=== PATIENT | female | born 1990 | race Caucasian/White ===

== ENCOUNTER 2016-08-23 16:24 | Outpatient (CLI) | payer MEDICAID ==
[2016-08-23 17:13] LABS: AMORPHOUS SEDIMENT,URINE TRACE /HPF; APPEARANCE,URINE SLIGHTLY-CLOUDY; BILIRUBIN,URINE NEGATIVE (NEGATIVE); GLUCOSE, URINE NEGATIVE (NEGATIVE); KETONES,URINE NEGATIVE (NEGATIVE); LEUKOCYTE ESTERASE,URINE NEGATIVE (NEGATIVE); NITRITE,URINE NEGATIVE (NEGATIVE); PROTEIN,URINE NEGATIVE (NEGATIVE); UROBILINOGEN,URINE NEGATIVE mg/dL (<2.0)
[2016-08-23 17:18] LABS: AMNISURE (ROM) NEGATIVE (NEGATIVE)
[2016-08-23 17:33] LABS: URINE BARBITURATES SCREEN NEGATIVE; URINE METHADONE SCREEN NEGATIVE; URINE OPIATES LOW NEGATIVE; URINE PHENCYCLIDINE SCREEN NEGATIVE
--- NOTE | 2016-08-23 17:34 | Non Stress Test Report ---
Non Stress Test Datetime Report Generated by CPN: 08/23/2016 17:34 DEMOGRAPHIC EGA NST: 34.0 INDICATION Indication for Study: Ordered by Provider Indication for Study (NST) Other: Labor Check MONITORING Monitor Explained: Monitor Explained; Test Explained; Patient Verbalized Understanding Time on Monitor: 08/23/2016 16:41 Time off Monitor: 08/23/2016 17:28 NST Duration: 47 NST INTERVENTIONS NST Interventions: PO Hydration; Reposition Patient Physician Notified NST: Dr. Blackwell BABY A: [id number] BABY A Movement : Present Contraction Frequency : 0 FHR Baseline : 145 Accelerations : 15X15 Variability : Moderate 6-25bpm NST Review: Meets Criteria for Reactive NST NST Review and Verified By : Richard Diehl RN NST Results: Reactive NST REPORT Report Trigger: Send Report
== END 2016-08-23 17:36 | disposition home or self-care (01) ==
LOC: LC 16:24
PROVIDERS: ATTEND Obstetrics & Gynecology
PROC: 4A1HXCZ Monitoring of Products of Conception, Cardiac Rate, External Approach (ICD-10-PCS; principal; 2016-08-23)
DX: O26.893 Other specified pregnancy related conditions, third trimester (principal); R10.9 Unspecified abdominal pain; Z3A.34 34 weeks gestation of pregnancy
CPT/HCPCS: 59025; 80307; 81001; 84112

== ENCOUNTER 2016-09-28 09:56 | Outpatient (CLI) | payer MEDICAID ==
[2016-09-28 10:52] LABS: APPEARANCE,URINE SLIGHTLY-CLOUDY; BILIRUBIN,URINE NEGATIVE (NEGATIVE); GLUCOSE, URINE NEGATIVE (NEGATIVE); KETONES,URINE NEGATIVE (NEGATIVE); LEUKOCYTE ESTERASE,URINE MODERATE (NEGATIVE); NITRITE,URINE NEGATIVE (NEGATIVE); PROTEIN,URINE NEGATIVE (NEGATIVE); URINE SPECIFIC GRAVITY 1.004; UROBILINOGEN,URINE NEGATIVE mg/dL (<2.0)
--- NOTE | 2016-09-28 11:04 | Non Stress Test Report ---
Non Stress Test Datetime Report Generated by CPN: 09/28/2016 11:04 DEMOGRAPHIC EGA NST: 39.1 INDICATION Indication for Study: Ordered by Provider MONITORING Monitor Explained: Monitor Explained; Test Explained; Patient Verbalized Understanding Time on Monitor: 09/28/2016 10:09 Time off Monitor: 09/28/2016 10:54 NST Duration: 45 NST INTERVENTIONS NST Interventions: None Physician Notified NST: Dr. [place] BABY A: [id number] BABY A Movement : Present Contraction Frequency : occasional FHR Baseline : 140 Accelerations : 15X15 Decelerations : None Variability : Moderate 6-25bpm NST Review: Meets Criteria for Reactive NST NST Results: Reactive NST REPORT Report Trigger: Send Report
[2016-09-28 11:16] LABS: URINE BARBITURATES SCREEN NEGATIVE; URINE METHADONE SCREEN NEGATIVE; URINE OPIATES LOW NEGATIVE; URINE PHENCYCLIDINE SCREEN NEGATIVE
== END 2016-09-28 11:08 | disposition home or self-care (01) ==
LOC: LC 09:56
PROVIDERS: ATTEND Obstetrics & Gynecology
PROC: 4A1HXCZ Monitoring of Products of Conception, Cardiac Rate, External Approach (ICD-10-PCS; principal; 2016-09-28)
DX: O47.1 False labor at or after 37 completed weeks of gestation (principal); Z3A.39 39 weeks gestation of pregnancy
CPT/HCPCS: 59025; 80307; 81005

== ENCOUNTER 2016-09-29 15:19 | Outpatient (CLI) | payer MEDICAID ==
--- NOTE | 2016-09-29 16:16 | Non Stress Test Report ---
Non Stress Test Datetime Report Generated by CPN: 09/29/2016 16:16 DEMOGRAPHIC EGA NST: 39.2 INDICATION Indication for Study: Ordered by Provider MONITORING Monitor Explained: Monitor Explained; Test Explained; Patient Verbalized Understanding Time on Monitor: 09/29/2016 15:30 Time off Monitor: 09/29/2016 16:12 NST Duration: 42 NST INTERVENTIONS NST Interventions: PO Hydration Physician Notified NST: Dr. Bharath BABY A: [id number] BABY A Movement : Present Contraction Frequency : occasional FHR Baseline : 140 Accelerations : 15X15 Decelerations : None Variability : Moderate 6-25bpm NST Review: Meets Criteria for Reactive NST NST Review and Verified By : CYNTHIA Wakefield Results: Reactive NST REPORT Report Trigger: Send Report
== END 2016-09-29 16:16 | disposition home or self-care (01) ==
LOC: LC 15:19
PROVIDERS: ATTEND Obstetrics & Gynecology
PROC: 4A1HXCZ Monitoring of Products of Conception, Cardiac Rate, External Approach (ICD-10-PCS; principal; 2016-09-29)
DX: Z34.93 Encounter for supervision of normal pregnancy, unspecified, third trimester (principal)
CPT/HCPCS: 59025

== ENCOUNTER 2016-10-02 16:31 | Outpatient (CLI) | payer MEDICAID ==
--- NOTE | 2016-10-02 17:38 | Non Stress Test Report ---
Non Stress Test Datetime Report Generated by CPN: 10/02/2016 17:38 DEMOGRAPHIC Test Number: 1 EGA NST: 39.5 INDICATION Indication for Study: Ordered by Provider Indication for Study (NST) Other: Pre e work up MONITORING Monitor Explained: Monitor Explained; Test Explained; Patient Verbalized Understanding Time on Monitor: 10/02/2016 16:41 Time off Monitor: 10/02/2016 17:28 NST Duration: 47 NST INTERVENTIONS NST Interventions: PO Hydration Physician Notified NST: Bharath BABY A: [id number] BABY A Movement : Present Contraction Frequency : occasional FHR Baseline : 135 Accelerations : 15X15 Decelerations : None Variability : Moderate 6-25bpm NST Review: Meets Criteria for Reactive NST NST Review and Verified By : V Monk RN NST Results: Reactive NST REPORT Report Trigger: Send Report (Annotations: Data stored by Marlo on behalf of user)
[2016-10-02 17:50] LABS: HEMATOCRIT 30.8 % (36.0-47.0); HEMOGLOBIN 10.6 g/dL (12.0-15.5); MEAN CORPUSCULAR HEMOGLOBIN 30.2 pg (27.0-33.4); MEAN CORPUSCULAR HGB CONC 34.3 g/dL (32.0-36.0); MEAN CORPUSCULAR VOLUME 88 fl (80-97); RED CELL DISTRIBUTION WIDTH 13.5 % (11.5-14.0); WHITE BLOOD COUNT 17.7 10^3/uL (4.0-10.5)
[2016-10-02 18:05] LABS: BASOPHILS % (MANUAL) 0 % (0-2); EOSINOPHILS % (MANUAL) 1 % (0-6); LYMPHOCYTES % (MANUAL) 11 % (13-45); TOTAL CELLS COUNTED 100
[2016-10-02 18:05] LABS: APPEARANCE,URINE SLIGHTLY-CLOUDY; BILIRUBIN,URINE NEGATIVE (NEGATIVE); GLUCOSE, URINE NEGATIVE (NEGATIVE); KETONES,URINE NEGATIVE (NEGATIVE); LEUKOCYTE ESTERASE,URINE MODERATE (NEGATIVE); NITRITE,URINE NEGATIVE (NEGATIVE); PROTEIN,URINE NEGATIVE (NEGATIVE); URINE SPECIFIC GRAVITY 1.011; UROBILINOGEN,URINE NEGATIVE mg/dL (<2.0)
[2016-10-02 18:06] LABS: ALANINE AMINOTRANSFERASE 17 U/L (9-52); ALBUMIN 3.8 g/dL (3.5-5.0); ALKALINE PHOSPHATASE 172 U/L (38-126); ANION GAP 11 (5-19); ASPARTATE AMINO TRANSFERASE 17 U/L (14-36); BILIRUBIN,DIRECT 0.3 mg/dL (0.0-0.4); BILIRUBIN,TOTAL 0.4 mg/dL (0.2-1.3); BLOOD UREA NITROGEN 13 mg/dL (7-20); CALCIUM 9.9 mg/dL (8.4-10.2); CARBON DIOXIDE 17 mmol/L (22-30); CHLORIDE 107 mmol/L (98-107); CREATININE RESULT 0.73 mg/dL (0.52-1.25); GLUCOSE 81 mg/dL (75-110); LDH 452 U/L (313-618); POTASSIUM 4.6 mmol/L (3.6-5.0); SODIUM 135.4 mmol/L (137-145); TOTAL PROTEIN 7.1 g/dL (6.3-8.2); TOXIC GRANULATION SLIGHT; URIC ACID 5.6 mg/dL (2.5-6.2)
[2016-10-02 18:33] LABS: URINE BARBITURATES SCREEN NEGATIVE; URINE METHADONE SCREEN NEGATIVE; URINE OPIATES LOW NEGATIVE; URINE PHENCYCLIDINE SCREEN NEGATIVE
[2016-10-02 18:37] LABS: URINE CREATININE 74.3 mg/dL (16-327); URINE PROTEIN 14.9 mg/dL (<12)
== END 2016-10-02 18:27 | disposition home or self-care (01) ==
LOC: LC 16:31
PROVIDERS: ATTEND Obstetrics & Gynecology
PROC: 4A1HXCZ Monitoring of Products of Conception, Cardiac Rate, External Approach (ICD-10-PCS; principal; 2016-10-02)
DX: O14.93 Unspecified pre-eclampsia, third trimester (principal); Z3A.39 39 weeks gestation of pregnancy
CPT/HCPCS: 36415; 59025; 80053; 80307; 81001; 82570; 83615; 84156; 84550; 85025

== ENCOUNTER 2016-10-04 01:31 | Outpatient (CLI) | payer MEDICAID ==
[2016-10-04 02:23] LABS: APPEARANCE,URINE CLEAR; BILIRUBIN,URINE NEGATIVE (NEGATIVE); GLUCOSE, URINE NEGATIVE (NEGATIVE); KETONES,URINE NEGATIVE (NEGATIVE); LEUKOCYTE ESTERASE,URINE TRACE (NEGATIVE); NITRITE,URINE NEGATIVE (NEGATIVE); PROTEIN,URINE NEGATIVE (NEGATIVE); URINE SPECIFIC GRAVITY 1.003; UROBILINOGEN,URINE NEGATIVE mg/dL (<2.0)
[2016-10-04 02:38] LABS: URINE BARBITURATES SCREEN NEGATIVE; URINE METHADONE SCREEN NEGATIVE; URINE OPIATES LOW NEGATIVE; URINE PHENCYCLIDINE SCREEN NEGATIVE
--- NOTE | 2016-10-04 03:58 | RADIOLOGY REPORT (SQ) ---
EXAM DESCRIPTION: U/S OB LIMITED COMPLETED DATE/TIME: 10/04/2016 3:30 am REASON FOR STUDY: TOSHIA . The patient is 40 weeks 0 days . COMPARISON: None. TECHNIQUE: Limited transabdominal grayscale and color Doppler ultrasound for evaluation of specific requested obstetrical parameters. LIMITATIONS: None. FINDINGS: CERVICAL LENGTH: Not applicable. Greater than 20 weeks. Need transvaginal study if indicat ed. TOSHIA: 13.8 cm. Clear appearance. FHR: 140 beats per minute. PRESENTATION: Vertex. IMPRESSION: LIMITED OBSTETRICAL ULTRASOUND WITH MEASURED PARAMETERS DELINEATED ABOVE. Trimester of : Third trimester - 28 weeks to delivery. TECHNICAL DOCUMENTATION: JOB ID: [id number] [employer]- All Rights Reserved
== END 2016-10-04 03:59 | disposition home or self-care (01) ==
LOC: LC 01:31
PROVIDERS: ATTEND Specialist
PROC: 4A1HXCZ Monitoring of Products of Conception, Cardiac Rate, External Approach (ICD-10-PCS; principal; 2016-10-04)
DX: O36.8130 Decreased fetal movements, third trimester, not applicable or unspecified (principal); Z3A.40 40 weeks gestation of pregnancy
CPT/HCPCS: 59025; 76815; 80307; 81005

== ENCOUNTER 2016-10-12 11:58 | Emergency (ER) | payer MEDICAID ==
--- NOTE | 2016-10-12 14:15 | ER Document Report ---
ED General - General Chief Complaint: Leg Pain Stated Complaint: LEG PAIN AND SWELLING LEFT LEG TRAVEL OUTSIDE OF THE [place] IN LAST 30 DAYS: No - HPI Patient complains to provider of: Left leg edema Notes: Patient is coming in 5 days postop from having a section. Patient states has been having issues of bilateral leg swelling elevated leg last night states that her right leg was normal this morning however the left leg continued to have swelling. Patient denies any pain left leg. Upon my evaluation patient is resting comfortably in no obvious distress no history of blood clots in the past. 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 - Related Data Allergies/Adverse Reactions: No Known Allergies Allergy (Verified 10/12/16 12:06) Past Medical History - Social History Smoking Status: Current Every Day Smoker Chew tobacco use (# tins/day): No Frequency of alcohol use: None Drug Abuse: None Family History: Reviewed & Not Pertinent Patient has suicidal ideation: No Patient has homicidal ideation: No Neurological Medical History: Reports: Hx Migraine Renal/ Medical History: Denies: Hx Peritoneal Dialysis Past Surgical History: Reports: Hx Section - Immunizations Hx Diphtheria, Pertussis, Tetanus Vaccination: Yes Review of Systems - Review of Systems Constitutional: No symptoms reported EENT: No symptoms reported Cardiovascular: No symptoms reported Respiratory: No symptoms reported Gastrointestinal: No symptoms reported Genitourinary: No symptoms reported Female Genitourinary: No symptoms reported Musculoskeletal: Other - Left leg swelling Skin: No symptoms reported Hematologic/Lymphatic: No symptoms reported Neurological/Psychological: No symptoms reported Physical Exam - Vital signs Vitals: Temp Pulse Resp BP Pulse Ox 98.2 F 78 14 142/90 H 99 10/12/16 12:06 10/12/16 12:06 10/12/16 12:06 10/12/16 12:06 10/12/16 12:06 Interpretation: Normal - General General appearance: Appears well, Alert - HEENT Head: Normocephalic, Atraumatic Eyes: Normal Pupils: PERRL - Respiratory Respiratory status: No respiratory distress Chest status: Nontender Breath sounds: Normal Chest palpation: Normal - Cardiovascular Rhythm: Regular Heart sounds: Normal auscultation Murmur: No - Abdominal Inspection: Normal Distension: No distension Bowel sounds: Normal Tenderness: Nontender Organomegaly: No organomegaly - Back Back: Normal, Nontender - Extremities General upper extremity: Normal inspection, Nontender, Normal color, Normal ROM , Normal temperature General lower extremity: Normal inspection, Edema - 1+ bilateral no calf tenderness, Normal color, Normal ROM, Normal temperature, Normal weight bearing. No: Felipe's sign - Neurological Neuro grossly intact: Yes Cognition: Normal Orientation: AAOx4 Emiliano Coma Scale Eye Opening: Spontaneous [place] Coma Scale Verbal: Oriented Emiliano Coma Scale Motor: Obeys Commands Emiliano Coma Scale Total: 15 Speech: Normal Motor strength normal: LUE, RUE, LLE, RLE Sensory: Normal - Psychological Associated symptoms: Normal affect, Normal mood - Skin Skin Temperature: Warm Skin Moisture: Dry Skin Color: Normal Course - Re-evaluation Re-evalutation: 10/12/16 14:14 Dopplers are negative. Otherwise clinical examination are consistent with blood clot. Patient will be discharged home. - Vital Signs Vital signs: Temp Pulse Resp BP Pulse Ox 98.2 F 78 14 142/90 H 99 10/12/16 12:06 10/12/16 12:06 10/12/16 12:06 10/12/16 12:06 10/12/16 12:06 Discharge - Discharge Clinical Impression: Left leg swelling Condition: Good Disposition: HOME, SELF-CARE Instructions: Dependent Edema ([facility]) Additional Instructions: Follow-up with your MARKETING PROJECT COORDINATOR. Continue your activities as tolerated. Continue to elevate her legs at night.
[2016-10-12 14:32] VITALS: BP 139/84
--- NOTE | 2016-10-12 14:41 | RADIOLOGY REPORT (SQ) ---
EXAM DESCRIPTION: VENOUS UNILATERAL LOWER COMPLETED DATE/TIME: 10/12/2016 2:23 pm REASON FOR STUDY: pain left leg / s/p c section COMPARISON: None. TECHNIQUE: Dynamic and static sandoval scale and color images acquired of the left leg venous system. Se lected spectral images acquired with additional compression and augmentation maneuvers. The contralat eral common femoral vein and saphenofemoral junction were also imaged. Images stored on PACS. LIMITATIONS: None. FINDINGS: COMMON FEMORAL: Normal phasicity, compression and augmentation. No visualized echogenic ma terial on sandoval scale. No defects on color images. FEMORAL: Normal compression and augmentation. No visualized echogenic material on sandoval scale. No defe cts on color images. POPLITEAL: Normal compression, augmentation. No visualized echogenic material on sandoval scale. No defec ts on color images. CALF VESSELS: Normal compression, augmentation. No visualized echogenic material on sandoval scale. No de fects on color images. GSV and SSV: Normal compression, augmentation. No visualized echogenic material on sandoval scale. No def ects on color images. ANY DEEP VENOUS INSUFFICIENCY: Not evaluated. ANY EVIDENCE OF POPLITEAL CYST: No. OTHER: No other significant finding. CONTRALATERAL COMMON FEMORAL VEIN AND SAPHENOFEMORAL JUNCTION: Normal phasicity, compression and augmentation. No visualized echogenic material on sandoval scale. No de fects on color images. IMPRESSION: NO EVIDENCE DVT OR SVT IN THE LEFT LEG. TECHNICAL DOCUMENTATION: JOB ID: [id number] [employer]- All Rights Reserved
== END 2016-10-12 14:32 | disposition home or self-care (01) ==
LOC: ER 11:58
DX: O90.89 Other complications of the puerperium, not elsewhere classified (principal); M79.89 Other specified soft tissue disorders; O99.335 Smoking (tobacco) complicating the puerperium; Z98.890 Other specified postprocedural states
CPT/HCPCS: 93971; 99283

== ENCOUNTER 2016-11-11 04:43 | Emergency (ER) | payer MEDICAID ==
--- NOTE | 2016-11-11 05:24 | ER Document Report ---
ED GI/ - General Chief Complaint: Abdominal Pain Stated Complaint: ABDOMINAL /BACK PAIN Time Seen by Provider: 11/11/16 05:24 Mode of Arrival: Ambulatory Information source: Patient Notes: 26-year-old post 1 month female complaining of epigastric and right upper quadrant abdominal pain for a week and a half. She went to [facility] for this pain and the lab work was normal. They did not do an ultrasound or CT scan. She has a lot of nausea without vomiting. No fever or chills. No dysuria. Lochia is dark brown at this time. She was monitored for possible preeclampsia during the late stages of . They did not place her on any medication. Blood pressure was 169/107 when at the [facility]. due to failure to progress. TRAVEL OUTSIDE OF THE [place] IN LAST 30 DAYS: No - Related Data Allergies/Adverse Reactions: No Known Allergies Allergy (Verified 11/11/16 05:01) Past Medical History - General Information source: Patient - Social History Smoking Status: Unknown if Ever Smoked Frequency of alcohol use: None Drug Abuse: None Lives with: Family Family History: Reviewed & Not Pertinent Patient has suicidal ideation: No Patient has homicidal ideation: No Neurological Medical History: Reports: Hx Migraine Renal/ Medical History: Denies: Hx Peritoneal Dialysis Past Surgical History: Reports: Hx Section - Immunizations Hx Diphtheria, Pertussis, Tetanus Vaccination: Yes Review of Systems - Review of Systems Constitutional: No symptoms reported EENT: No symptoms reported Cardiovascular: No symptoms reported Respiratory: No symptoms reported Gastrointestinal: See HPI Genitourinary: No symptoms reported Female Genitourinary: No symptoms reported Musculoskeletal: No symptoms reported Skin: No symptoms reported Hematologic/Lymphatic: No symptoms reported Neurological/Psychological: No symptoms reported Physical Exam - Vital signs Vitals: Temp Pulse Resp BP Pulse Ox 97.9 F 75 22 H 147/113 H 99 11/11/16 04:57 11/11/16 04:57 11/11/16 04:57 11/11/16 04:57 11/11/16 04:57 Interpretation: Hypertensive - General General appearance: Appears well, Alert In distress: None - HEENT Head: Normocephalic, Atraumatic Eyes: Normal Pupils: PERRL Pharynx: Normal Neck: Supple. No: Lymphadenopathy - Respiratory Respiratory status: No respiratory distress Chest status: Nontender Breath sounds: Normal Chest palpation: Normal - Cardiovascular Rhythm: Regular Heart sounds: Normal auscultation Murmur: No - Abdominal Inspection: Normal Distension: No distension Bowel sounds: Normal Tenderness: Tender - epigastric, RUQ Organomegaly: No organomegaly - Back Back: Normal, Nontender. No: CVA tenderness - Extremities General upper extremity: Normal inspection, Nontender, Normal color, Normal ROM , Normal temperature General lower extremity: Normal inspection, Nontender, Normal color, Normal ROM , Normal temperature, Normal weight bearing. No: Felipe's sign - Neurological Neuro grossly intact: Yes Cognition: Normal Orientation: AAOx4 Emiliano Coma Scale Eye Opening: Spontaneous [place] Coma Scale Verbal: Oriented Emiliano Coma Scale Motor: Obeys Commands Emiliano Coma Scale Total: 15 Speech: Normal Motor strength normal: LUE, RUE, LLE, RLE Sensory: Normal - Psychological Associated symptoms: Normal affect, Normal mood - Skin Skin Temperature: Warm Skin Moisture: Dry Skin Color: Normal Skin irregularity: negative: Rash Course - Re-evaluation Re-evalutation: 11/11/16 06:08 pain 0/5 after pain rx. discussed case with dr. engel re: BP 11/11/16 06:09 11/11/16 06:55 Labs are negative no protein in the urine. LFTs are normal. 11/11/16 07:[address] Matthews because the ultrasound shows a right kidney hydronephrosis with a cystic structure in the right mid kidney with a 8 mm stone. He recommends placing the patient on a PPI, telling her about this kidney stone that that is trying to come out of the kidney and have her follow-up with [facility]. I will give her copies of the lab work and ultrasound results. Her gallbladder is negative. - Vital Signs Vital signs: Temp Pulse Resp BP Pulse Ox 97.9 F 75 13 123/101 H 99 11/11/16 04:57 11/11/16 04:57 11/11/16 07:01 11/11/16 07:01 11/11/16 07:01 - Laboratory Result Diagrams: 11/11/16 05:40 11/11/16 05:40 Laboratory results interpreted by me: 11/11/16 11/11/16 05:40 05:40 Hct 35.7 L RDW 14.2 H Eosinophils % 7.9 H Chloride 110 H Discharge - Discharge Clinical Impression: Elevated blood pressure reading, upper abdominal pain, Kidney stone Condition: Good Disposition: HOME, SELF-CARE Instructions: Evaluation of Upper Abdominal Pain ([facility]), Kidney Stone ([facility]), Prilosec (Acid Pump Inhibitor) ([facility]), Gastroenterology Additional Instructions: to er if worse copy of labs given to you see gastroenterology if the abd pain persists see urology to follow the kidney stone Please complete the patient satisfaction survey if you get one, and return it.. If you do not receive a survey, then you can go to the [facility] website, [email or web address] and place your comments about your very good care. Thank you very much. It was a pleasure being your medical provider today. Prescriptions: Pantoprazole Sodium [Protonix] 40 mg PO DAILY #30 [email or web address] Referrals: CHANDAN HENDERSON MD [ACTIVE STAFF] - Follow up as needed
[2016-11-11] MEDS ORDERED: NORMAL SALINE 1000 ML 1,000 ML IV ONE (05:26)
[2016-11-11] MEDS ORDERED: ONDANSETRON HCL INJ/PF 4 MG/2 ML SDV IV ONE (05:26)
[2016-11-11] MEDS ORDERED: MORPHINE SULFATE 10 MG/ML INJ IV ONE (05:26)
[2016-11-11 06:10] LABS: ABSOLUTE BASOPHILS # (AUTO) 0.1 10^3/uL (0.0-0.2); ABSOLUTE EOSINOPHILS # (AUTO) 0.5 10^3/uL (0.0-0.6); ABSOLUTE LYMPHOCYTES (AUTO) 1.8 10^3/uL (0.5-4.7); ABSOLUTE MONOCYTES (AUTO) 0.4 10^3/uL (0.1-1.4); ABSOLUTE NEUT (AUTO) 3.8 10^3/uL (1.7-8.2); BASOPHILS % (AUTO) 1.4 % (0-2); EOSINOPHILS % (AUTO) 7.9 % (0-6); HEMATOCRIT 35.7 % (36.0-47.0); HEMOGLOBIN 12.1 g/dL (12.0-15.5); HGB HCT DIFFERENCE 0.6; LYMPHOCYTES % (AUTO) 27.1 % (13-45); MEAN CORPUSCULAR VOLUME 88 fl (80-97); MONOCYTES % (AUTO) 6.6 % (3-13); RED BLOOD COUNT 4.04 10^6/uL (3.72-5.28); RED CELL DISTRIBUTION WIDTH 14.2 % (11.5-14.0); WHITE BLOOD COUNT 6.7 10^3/uL (4.0-10.5)
[2016-11-11 06:22] LABS: ALANINE AMINOTRANSFERASE 19 U/L (9-52); ALKALINE PHOSPHATASE 59 U/L (38-126); ANION GAP 9 (5-19); ASPARTATE AMINO TRANSFERASE 18 U/L (14-36); BILIRUBIN,DIRECT 0.3 mg/dL (0.0-0.4); BILIRUBIN,TOTAL 0.3 mg/dL (0.2-1.3); BLOOD UREA NITROGEN 20 mg/dL (7-20); CALCIUM 9.6 mg/dL (8.4-10.2); CARBON DIOXIDE 22 mmol/L (22-30); CHLORIDE 110 mmol/L (98-107); CREATININE RESULT 0.74 mg/dL (0.52-1.25); GLUCOSE 91 mg/dL (75-110); LIPASE 148.3 U/L (23-300); POTASSIUM 4.2 mmol/L (3.6-5.0); TOTAL PROTEIN 6.9 g/dL (6.3-8.2)
[2016-11-11 06:37] LABS: APPEARANCE,URINE CLEAR; BILIRUBIN,URINE NEGATIVE (NEGATIVE); GLUCOSE, URINE NEGATIVE (NEGATIVE); KETONES,URINE NEGATIVE (NEGATIVE); LEUKOCYTE ESTERASE,URINE NEGATIVE (NEGATIVE); NITRITE,URINE NEGATIVE (NEGATIVE); PROTEIN,URINE NEGATIVE (NEGATIVE); URINE SPECIFIC GRAVITY 1.005; UROBILINOGEN,URINE NEGATIVE mg/dL (<2.0)
--- NOTE | 2016-11-11 07:14 | RADIOLOGY REPORT (SQ) ---
EXAM DESCRIPTION: U/S ABDOMEN LIMITED W/O DOP CLINICAL HISTORY: 26 years, Female, epigastric, ruq abd pain COMPARISON: None. TECHNIQUE: Grayscale, color Doppler and spectral Doppler waveform analysis techniques were all utilized to perform this examination. LIMITATIONS: None. FINDINGS: No Hyperechoic mobile shadowing stones in the fluid-filled gallbladder. No gallbladder wall thickening or pericholecystic fluid. Gallbladder wall measures 1.4 mm in greatest thickness. Common duct measures 2.4 mm in greatest diameter. No intra or extrahepatic biliary ductal dilatation. The right hepatic lobe appears grossly normal and measures 16 cm in greatest sagittal dimension. There is normal hepatopedal blood flow in the portal vein using color Doppler and spectral Doppler waveform analysis techniques. Right kidney measures 11.4 cm in greatest sagittal dimension. 1.3 cm cystic structure in the mid right kidney probably representing dilated renal collecting system with associated shadowing stone measuring at least 8 mm in greatest diameter. Strong arterial and venous blood flow to the right kidney using color Doppler techniques. The pancreatic head and body are normal. The pancreatic tail cannot be clearly visualized. The suprarenal abdominal aorta and inferior vena cava are normal. Splenic vein is patent. IMPRESSION: 1. No ultrasonographic evidence of cholelithiasis or cholecystitis. 2. No intra or extrahepatic biliary ductal dilatation. 3. Suspect right hydronephrosis with probable nonobstructing shadowing right renal collecting system stone is described above. 2011 [employer]- All Rights Reserved
[2016-11-11] MEDS ORDERED: LANSOPRAZOLE 30 MG TAB.RAP.DR PO ONE (07:20)
[2016-11-11 07:54] VITALS: BP 138/89
== END 2016-11-11 07:54 | disposition home or self-care (01) ==
LOC: ER 04:43
DX: O90.89 Other complications of the puerperium, not elsewhere classified (principal); N13.2 Hydronephrosis with renal and ureteral calculous obstruction; R03.0 Elevated blood-pressure reading, without diagnosis of hypertension; R10.11 Right upper quadrant pain; R10.13 Epigastric pain; R11.0 Nausea; Z98.890 Other specified postprocedural states
CPT/HCPCS: 99284; 96361; 96374; 96375; 36415; 87086; 83690; 84703; 85025; 80053; 81001; 76705; J2270; J2405; J7030

== ENCOUNTER 2016-11-14 04:22 | Emergency (ER) | payer MEDICAID ==
--- NOTE | 2016-11-14 04:55 | ER Document Report ---
ED Medical Screen (RME) - General Chief Complaint: Post Surgical Pain Stated Complaint: POST OP SURGICAL PAIN Time Seen by Provider: 11/14/16 04:47 Notes: 26-year-old female, chief complaint of abdominal pain that started today, reports pain over her lower abdomen on both sides, she states the area above her incision status post on 10/07/2016 "looks red". She denies trauma to the area. She denies fever or chills, nausea or vomiting, she does report some painful urination, she reports pain in her abdomen when she urinates. She states she has minimal vaginal bleeding now. She is not breast-feeding. She had a performed by [facility]. TRAVEL OUTSIDE OF THE [place] IN LAST 30 DAYS: No - Related Data Allergies/Adverse Reactions: No Known Allergies Allergy (Verified 11/11/16 05:01) Past Medical History Neurological Medical History: Reports: Hx Migraine Renal/ Medical History: Denies: Hx Peritoneal Dialysis Past Surgical History: Reports: Hx Section - Immunizations Hx Diphtheria, Pertussis, Tetanus Vaccination: Yes Physical Exam - Vital signs Vitals: Temp Pulse Resp BP Pulse Ox 97.7 F 90 16 139/89 H 99 11/14/16 04:24 11/14/16 04:24 11/14/16 04:24 11/14/16 04:24 11/14/16 04:24 - Abdominal Inspection: Healed incision - Healed incision with no dehiscence or discharge Tenderness: Tender - Tender over lower abdomen generally on both sides, no rigidity or guarding Course - Re-evaluation Re-evalutation: Wound appears to have healed well, mild erythema does not appear to be overt cellulitis at this time. Patient does have tenderness over the lower abdomen generally. Workup pending. - Vital Signs Vital signs: Temp Pulse Resp BP Pulse Ox 97.7 F 90 16 139/89 H 99 11/14/16 04:24 11/14/16 04:24 11/14/16 04:24 11/14/16 04:24 11/14/16 04:24
[2016-11-14 05:22] LABS: ABSOLUTE BASOPHILS # (AUTO) 0.1 10^3/uL (0.0-0.2); ABSOLUTE EOSINOPHILS # (AUTO) 0.5 10^3/uL (0.0-0.6); ABSOLUTE LYMPHOCYTES (AUTO) 1.6 10^3/uL (0.5-4.7); ABSOLUTE MONOCYTES (AUTO) 0.8 10^3/uL (0.1-1.4); ABSOLUTE NEUT (AUTO) 5.3 10^3/uL (1.7-8.2); BASOPHILS % (AUTO) 0.9 % (0-2); EOSINOPHILS % (AUTO) 6.3 % (0-6); HEMATOCRIT 39.9 % (36.0-47.0); HEMOGLOBIN 13.3 g/dL (12.0-15.5); LYMPHOCYTES % (AUTO) 19.8 % (13-45); MEAN CORPUSCULAR HEMOGLOBIN 29.4 pg (27.0-33.4); MEAN CORPUSCULAR HGB CONC 33.2 g/dL (32.0-36.0); MEAN CORPUSCULAR VOLUME 88 fl (80-97); MONOCYTES % (AUTO) 9.4 % (3-13); RED BLOOD COUNT 4.51 10^6/uL (3.72-5.28); SEGMENTED NEUTROPHILS % (AUTO) 63.6 % (42-78); WHITE BLOOD COUNT 8.3 10^3/uL (4.0-10.5)
[2016-11-14 05:28] LABS: APPEARANCE,URINE SLIGHTLY-CLOUDY; BILIRUBIN,URINE NEGATIVE (NEGATIVE); GLUCOSE, URINE NEGATIVE (NEGATIVE); KETONES,URINE NEGATIVE (NEGATIVE); LEUKOCYTE ESTERASE,URINE NEGATIVE (NEGATIVE); NITRITE,URINE NEGATIVE (NEGATIVE); PROTEIN,URINE 30 mg/dL (NEGATIVE); URINE SPECIFIC GRAVITY 1.034
[2016-11-14 05:35] LABS: ALANINE AMINOTRANSFERASE 22 U/L (9-52); ALBUMIN 4.3 g/dL (3.5-5.0); ALKALINE PHOSPHATASE 62 U/L (38-126); ANION GAP 12 (5-19); ASPARTATE AMINO TRANSFERASE 17 U/L (14-36); BILIRUBIN,DIRECT 0.4 mg/dL (0.0-0.4); BILIRUBIN,TOTAL 0.4 mg/dL (0.2-1.3); BLOOD UREA NITROGEN 23 mg/dL (7-20); CARBON DIOXIDE 24 mmol/L (22-30); CHLORIDE 108 mmol/L (98-107); CREATININE RESULT 0.75 mg/dL (0.52-1.25); GLUCOSE 93 mg/dL (75-110); POTASSIUM 3.9 mmol/L (3.6-5.0); TOTAL PROTEIN 7.4 g/dL (6.3-8.2)
[2016-11-14 06:58] VITALS: BP 127/75
--- NOTE | 2016-11-14 07:02 | ER Document Report ---
ED General - General Chief Complaint: Post Surgical Pain Stated Complaint: POST OP SURGICAL PAIN Time Seen by Provider: 11/14/16 04:47 TRAVEL OUTSIDE OF THE [place] IN LAST 30 DAYS: No - HPI Patient complains to provider of: pain Notes: Patient coming in for evaluation of pain around her . Patient had C- section performed in September. Patient states now is having some redness around C -section site. Patient denies fevers chills nausea vomiting diarrhea patient states the area is very sensitive. Denies any drainage. - Related Data Allergies/Adverse Reactions: No Known Allergies Allergy (Verified 11/14/16 06:00) Home Medications: Current Home Medications Docusate Sodium [Colace 100 mg Capsule] 1 cap PO BID 11/14/16 [History] Ferrous Sulfate [Feosol 325 mg Tablet] 1 tab PO BID 11/14/16 [History] Naproxen [Naproxen] 1 tab PO BID 11/14/16 [History] Pantoprazole Sodium [Protonix] 1 pkt PO DAILY 11/14/16 [History] Past Medical History - Social History Smoking Status: Current Every Day Smoker Chew tobacco use (# tins/day): No Frequency of alcohol use: None Drug Abuse: None Family History: Reviewed & Not Pertinent Patient has suicidal ideation: No Patient has homicidal ideation: No Neurological Medical History: Reports: Hx Migraine Renal/ Medical History: Denies: Hx Peritoneal Dialysis Psychiatric Medical History: Reports: Hx Depression - anxiety Past Surgical History: Reports: Hx Section - Immunizations Hx Diphtheria, Pertussis, Tetanus Vaccination: Yes Review of Systems - Review of Systems Constitutional: Other - Wound complaint EENT: No symptoms reported Cardiovascular: No symptoms reported Respiratory: No symptoms reported Gastrointestinal: No symptoms reported Genitourinary: No symptoms reported Female Genitourinary: No symptoms reported Musculoskeletal: No symptoms reported Skin: No symptoms reported Hematologic/Lymphatic: No symptoms reported Neurological/Psychological: No symptoms reported Physical Exam - Vital signs Vitals: Temp Pulse Resp BP Pulse Ox 97.7 F 90 16 139/89 H 99 11/14/16 04:24 11/14/16 04:24 11/14/16 04:24 11/14/16 04:24 11/14/16 04:24 Interpretation: Normal - General General appearance: Appears well, Alert - HEENT Head: Normocephalic, Atraumatic Eyes: Normal Pupils: PERRL - Respiratory Respiratory status: No respiratory distress Chest status: Nontender Breath sounds: Normal Chest palpation: Normal - Cardiovascular Rhythm: Regular Heart sounds: Normal auscultation Murmur: No - Abdominal Inspection: Normal Distension: No distension Bowel sounds: Normal Tenderness: Other - Patient with a scar mild erythema approximately 1 inch cephalad to the site warm and tender to touch there is some mild swelling localized to this area bedside ultrasound does not show any fluid collection consistent with abscess. Patient does have areas of folliculitis caudad to the site with the patient has been shaving. More likely etiology of underlying cellulitis Organomegaly: No organomegaly - Back Back: Normal, Nontender - Extremities General upper extremity: Normal inspection, Nontender, Normal color, Normal ROM , Normal temperature General lower extremity: Normal inspection, Nontender, Normal color, Normal ROM , Normal temperature, Normal weight bearing. No: Felipe's sign - Neurological Neuro grossly intact: Yes Cognition: Normal Orientation: AAOx4 Emiliano Coma Scale Eye Opening: Spontaneous [place] Coma Scale Verbal: Oriented [place] Coma Scale Motor: Obeys Commands [place] Coma Scale Total: 15 Speech: Normal Motor strength normal: LUE, RUE, LLE, RLE Sensory: Normal - Psychological Associated symptoms: Normal affect, Normal mood - Skin Skin Temperature: Warm Skin Moisture: Dry Skin Color: Normal Course - Re-evaluation Re-evalutation: 11/14/16 14:31 Cellulitic formation around the site more likely from irritation of the skin by shaving. Patient was instructed to stop shaving. Will place on Keflex will discharge patient home. - Vital Signs Vital signs: Temp Pulse Resp BP Pulse Ox 98.1 F 73 16 127/75 H 99 11/14/16 06:56 11/14/16 06:56 11/14/16 06:56 11/14/16 06:56 11/14/16 06:56 - Laboratory Result Diagrams: 11/14/16 05:05 11/14/16 05:05 Laboratory results interpreted by me: 11/14/16 11/14/16 11/14/16 05:05 05:05 05:05 Eosinophils % 6.3 H Chloride 108 H BUN 23 H Urine Protein 30 H Urine Blood LARGE H Urine Urobilinogen 2.0 H Urine Ascorbic Acid 20 H Discharge - Discharge Clinical Impression: Cellulitis, wound, post-operative Qualifiers: Encounter type: initial encounter Qualified Code(s): T81.4XXA - Infection following a procedure, initial encounter Condition: Good Disposition: HOME, SELF-CARE Instructions: Cellulitis ([facility]) Additional Instructions: Examination today shows signs of possible underlying skin infection. It is very important that she stop shaving around the area. Also please avoid any undergarments that lie over the incision or near the incision. Take medications as prescribed return to ER symptoms worsen. Continue take Tylenol Motrin for pain control Prescriptions: Cephalexin Monohydrate [Keflex 500 mg Capsule] 500 mg PO Q6H 7 Days capsule Tramadol HCl [Ultram 50 mg Tablet] 50 mg PO ASDIR PRN #14 tablet PRN Reason: Referrals: HALLIE STRICKLAND MD [Primary Care Provider] - Follow up in 3-5 days
== END 2016-11-14 07:05 | disposition home or self-care (01) ==
LOC: ER 04:22
DX: T81.4XXA Infection following a procedure, initial encounter (principal); G89.18 Other acute postprocedural pain; Z79.899 Other long term (current) drug therapy; F17.200 Nicotine dependence, unspecified, uncomplicated
CPT/HCPCS: 36415; 80053; 81001; 81025; 85025; 99283

== ENCOUNTER 2018-07-14 12:44 | Emergency (ER) | payer SELFPAY ==
--- NOTE | 2018-07-14 13:09 | ER Document Report ---
ED Medical Screen (RME) - General Chief Complaint: Abdominal Pain Stated Complaint: ABDOMINAL PAIN Time Seen by Provider: 07/14/18 13:04 Primary Care Provider: HALLIE STRICKLAND MD [Primary Care Provider] - Follow up as needed Mode of Arrival: Ambulatory Information source: Patient Notes: Patient is an otherwise healthy 28-year-old female presenting with chief compl aint of low abdominal pain, increased and abdominal smelling vaginal discharge and nausea. Patient reports she has had the abdominal pain for at least 2 weeks. Exam: Low abdomen tenderness with palpation. I have greeted and performed a rapid initial assessment of this patient. A comprehensive ED assessment and evaluation of the patient, analysis of test results and completion of the medical decision making process will be conducted by additional ED providers. Dictation of this chart was performed using voice recognition software; therefore, there may be some unintended grammatical errors. TRAVEL OUTSIDE OF THE [place] IN LAST 30 DAYS: No - Related Data Allergies/Adverse Reactions: No Known Allergies Allergy (Verified 07/14/18 12:50) Past Medical History Neurological Medical History: Reports: Hx Migraine Renal/ Medical History: Denies: Hx Peritoneal Dialysis Psychiatric Medical History: Reports: Hx Depression - anxiety Past Surgical History: Reports: Hx Section - Immunizations Hx Diphtheria, Pertussis, Tetanus Vaccination: Yes History of Influenza Vaccine for 11/2016 - 04/2017 Season: No Physical Exam - Vital signs Vitals: Temp Pulse Resp BP Pulse Ox 99.5 F 96 18 131/72 H 95 07/14/18 12:45 07/14/18 12:45 07/14/18 12:45 07/14/18 12:45 07/14/18 12:45 Course - Vital Signs Vital signs: Temp Pulse Resp BP Pulse Ox 99.5 F 96 18 131/72 H 95 07/14/18 12:45 07/14/18 12:45 07/14/18 12:45 07/14/18 12:45 07/14/18 12:45 Doctor's Discharge - Discharge Referrals: HALLIE STRICKLAND MD [Primary Care Provider] - Follow up as needed
[2018-07-14 13:59] LABS: ABSOLUTE BASOPHILS # (AUTO) 0.1 10^3/uL (0.0-0.2); ABSOLUTE EOSINOPHILS # (AUTO) 0.3 10^3/uL (0.0-0.6); ABSOLUTE LYMPHOCYTES (AUTO) 1.4 10^3/uL (0.5-4.7); ABSOLUTE MONOCYTES (AUTO) 0.5 10^3/uL (0.1-1.4); ABSOLUTE NEUT (AUTO) 6.8 10^3/uL (1.7-8.2); BASOPHILS % (AUTO) 0.7 % (0-2); EOSINOPHILS % (AUTO) 3.3 % (0-6); HEMATOCRIT 41.2 % (36.0-47.0); LYMPHOCYTES % (AUTO) 15.7 % (13-45); MEAN CORPUSCULAR HEMOGLOBIN 30.8 pg (27.0-33.4); MEAN CORPUSCULAR HGB CONC 33.9 g/dL (32.0-36.0); MEAN CORPUSCULAR VOLUME 91 fl (80-97); MONOCYTES % (AUTO) 5.2 % (3-13); PLATELET COUNT 297 10^3/uL (150-450); RED BLOOD COUNT 4.53 10^6/uL (3.72-5.28); RED CELL DISTRIBUTION WIDTH 13.4 % (11.5-14.0); SEGMENTED NEUTROPHILS % (AUTO) 75.1 % (42-78); TOTAL CELLS COUNTED % (AUTO) 100 %; WHITE BLOOD COUNT 9.1 10^3/uL (4.0-10.5)
[2018-07-14 14:22] LABS: ALANINE AMINOTRANSFERASE 10 U/L (9-52); ALBUMIN 4.4 g/dL (3.5-5.0); ALKALINE PHOSPHATASE 55 U/L (38-126); ANION GAP 11 (5-19); ASPARTATE AMINO TRANSFERASE 15 U/L (14-36); BILIRUBIN,DIRECT 0.2 mg/dL (0.0-0.4); BILIRUBIN,TOTAL 0.3 mg/dL (0.2-1.3); BLOOD UREA NITROGEN 10 mg/dL (7-20); CALCIUM 9.9 mg/dL (8.4-10.2); CARBON DIOXIDE 25 mmol/L (22-30); CHLORIDE 108 mmol/L (98-107); GLUCOSE 86 mg/dL (75-110); POTASSIUM 4.4 mmol/L (3.6-5.0); SODIUM 143.5 mmol/L (137-145); TOTAL PROTEIN 7.5 g/dL (6.3-8.2)
--- NOTE | 2018-07-14 15:13 | ER Document Report ---
ED GI/ - General Chief Complaint: Abdominal Pain Stated Complaint: ABDOMINAL PAIN Time Seen by Provider: 07/14/18 13:04 Primary Care Provider: HALLIE STRICKLAND MD [ACTIVE STAFF] - Follow up as needed Mode of Arrival: Ambulatory Notes: Patient is a 28-year-old female who presents to the emergency department with multiple complaints. Patient states that 2 weeks ago she developed left flank pain that radiated into her left upper quadrant. She states that it felt like a stabbing pain. Patient also complains of bloating. Patient states that she is having lower abdominal discomfort. Patient reports history of ovarian cysts, kidney stones, gallstones so she is unsure if any of these other cause to her discomfort. States the only place in her abdomen that she does not hurt is around her bellybutton. Patient also states that she has been diagnosed with gastric ulcers that she is supposed to take medications for. Patient does not take medications and only takes Tums as needed. Patient denies vaginal discharge. Patient denies vaginal odor. Patient states she had a last bowel movement today and states her last couple of bowel movements have been loose stools. Denies rectal bleeding. She denies fever. TRAVEL OUTSIDE OF THE [place] IN LAST 30 DAYS: No - Related Data Allergies/Adverse Reactions: No Known Allergies Allergy (Verified 07/14/18 12:50) Past Medical History - General Information source: Patient - Social History Smoking Status: Unknown if Ever Smoked Family History: Reviewed & Not Pertinent Patient has suicidal ideation: No Patient has homicidal ideation: No Neurological Medical History: Reports: Hx Migraine Renal/ Medical History: Denies: Hx Peritoneal Dialysis Psychiatric Medical History: Reports: Hx Depression - anxiety Past Surgical History: Reports: Hx Section - Immunizations Hx Diphtheria, Pertussis, Tetanus Vaccination: Yes Physical Exam - Vital signs Vitals: Temp Pulse Resp BP Pulse Ox 99.5 F 96 18 131/72 H 95 07/14/18 12:45 07/14/18 12:45 07/14/18 12:45 07/14/18 12:45 07/14/18 12:45 Interpretation: Normal - Notes Notes: GENERAL: Well-appearing, well-nourished and in no acute distress. HEAD: Atraumatic, normocephalic. EYES: Pupils equal round and reactive to light, extraocular movements intact, sclera anicteric, conjunctiva are normal. ENT: Nares patent, oropharynx clear without exudates. Moist mucous membranes. NECK: Normal range of motion, supple without lymphadenopathy or JVD. LUNGS: Breath sounds clear to auscultation bilaterally and equal. No wheezes rales or rhonchi. HEART: Regular rate and rhythm without murmurs, rubs or gallops. ABDOMEN: Soft, generally tender throughout abdomen, hyperactive bowel sounds. No guarding, no rebound. No masses appreciated. BACK: No cervical, thoracic, lumbar midline tenderness. No saddle anesthesia, normal distal neurovascular exam. Minimal CVA tenderness bilaterally. GENITOURINARY: Deferred. EXTREMITIES: Normal range of motion, no pitting or edema. No clubbing or cyanosis. NEUROLOGICAL: Cranial nerves II through XII grossly intact. Normal speech, normal gait. PSYCH: Normal mood, normal affect. SKIN: Warm, Dry, normal turgor, no rashes or lesions noted. Course - Re-evaluation Re-evalutation: 07/14/18 17:07 Lab work unremarkable. Due to generalized abdominal complaint both ultrasound and CAT scan have been ordered. Patient is in agreement of the plan. I have discussed the risks with CAT scan and radiation, patient states she would like to proceed due to increased pain. Patient admits to taking 6-7 BC powders per day. Patient states she was diagnosed with "gastric ulcers" years ago and is suppose to be on medication but is not. 07/14/18 18:10 Patient CAT scan did show a 7mm non-obstructing kidney stone on the right. There is no evidence of hydronephrosis. Ultrasound pending. 07/14/18 19:52 Discussed normal pelvic ultrasound findings with patient as well as 7mm kidney stone on the right. Patient states that she knew about the existing right kidney stone and that her pain is not located in this area. Reassured patient that her blood work, urine, pelvic specimens and vitals are normal. Did educate patient to stop taking BC powders as this could contribute to some of her abdominal pain especially in the upper abdomen. Also educated patient to avoid NSAID's such as Ibuprofen, Aleve as this can irritate and worsen the gastric ulcers. Will prescribe pepcid for pain. Patient will need follow up with GI. - Vital Signs Vital signs: Temp Pulse Resp BP Pulse Ox 98.1 F 66 16 117/78 99 07/14/18 19:38 07/14/18 19:38 07/14/18 19:38 07/14/18 19:38 07/14/18 19:38 - Laboratory Result Diagrams: 07/14/18 13:34 07/14/18 13:34 Laboratory results interpreted by me: 07/14/18 13:34 Chloride 108 H - Diagnostic Test Radiology reviewed: Reports reviewed Procedures - Pelvic Exam Pelvic exam Cultures obtained: Yes Wet prep obtained: Yes Foreign body removed: No Witnessed by: NURSE Notes: 07/14/18 External genitalia normal, no lesions, excoriation, discharge or abnormality. Minimal pain with insertion of speculum, cervix visualized, no bleeding, scant white discharge. After procedure patient reports having increased pain to the lower abdomen specifically RLQ. Discharge - Discharge Clinical Impression: Kidney stone on right side, Pelvic pain Abdominal pain Qualifiers: Abdominal location: generalized Qualified Code(s): R10.84 - Generalized abdominal pain Condition: Stable Disposition: HOME, SELF-CARE Additional Instructions: Today you were seen in the emergency department for back pain and abdominal pain. Your pelvic exam, pelvic ultrasound, urine and blood work were unremarkable. Your CAT scan did show a 7 mm kidney stone on the right side. You stated that you were aware of this. I am unsure as to why you are having this pain. Please stop taking BC powders due to your history of gastric ulcers. Also, AVOID NSAID's such as Aleve, Ibuprofen as this can be irritating to the stomach and cause pain. I am prescribing you Pepcid, please take one tablet daily. Please follow up with your supervisor [address] road for management of this. Please return the emergency department for worsening signs or symptoms to include vomiting blood, severe abdominal pain, fever, chills or any other concerning signs or symptoms. Abdominal Pain The physician does not feel that hospitalization is necessary, at present. Things may change within the next 24 hours. Call the doctor or come back for re- examination if any problems occur, such as: (1) Pain that becomes more severe, steady, or becomes concentrated in one specific area. Also, pain that is more severe with movement or coughing. (2) Vomiting that persists or becomes more frequent. (3) Blood in the vomitus, urine, or bowel movements. Blood in the stool may have a tarry or black appearance. (4) Shaking chills or fever greater than 100 degrees F. (5) The abdomen becomes more distended or swollen. (6) Bowel movements cease. (7) Failure to improve as expected. Prescriptions: Famotidine [Pepcid 20 mg Tablet] 20 mg PO DAILY #30 tablet Referrals: [facility] [Provider Group] - Follow up as needed CHANDAN HENDERSON MD [ACTIVE STAFF] - Follow up as needed
[2018-07-14 15:22] LABS: APPEARANCE,URINE CLOUDY; BILIRUBIN,URINE NEGATIVE (NEGATIVE); COLOR,URINE YELLOW; GLUCOSE, URINE NEGATIVE (NEGATIVE); KETONES,URINE NEGATIVE (NEGATIVE); LEUKOCYTE ESTERASE,URINE NEGATIVE (NEGATIVE); NITRITE,URINE NEGATIVE (NEGATIVE); PROTEIN,URINE NEGATIVE (NEGATIVE); URINE SPECIFIC GRAVITY 1.019; UROBILINOGEN,URINE NEGATIVE mg/dL (<2.0)
[2018-07-14] MEDS ORDERED: ONDANSETRON HCL INJ/PF 4 MG/2 ML SDV IV ONE (16:00)
[2018-07-14] MEDS ORDERED: MORPHINE SULFATE 10 MG/ML INJ IV ONE (16:02)
[2018-07-14] MEDS ORDERED: NORMAL SALINE 1000 ML 1,000 ML IV ONE (16:02)
[2018-07-14 16:08] LABS: T.VAGINALIS (WET MOUNT) NO TRICHOMONAS SEEN; WBCS (WET MOUNT) NO WBCS SEEN; YEAST (WET MOUNT) NO YEAST SEEN
--- NOTE | 2018-07-14 17:30 | RADIOLOGY REPORT (SQ) ---
EXAM DESCRIPTION: CT ABD/PELVIS WITH IV ONLY COMPLETED DATE/TIME: 07/14/2018 5:21 pm REASON FOR STUDY: abdominal pain COMPARISON: None. TECHNIQUE: CT scan of the abdomen and pelvis performed using helical scanning technique with dynamic intravenous contrast injection. No oral contrast. Images reviewed with lung, soft tissue, and bone windows. Reconstructed coronal and sagittal MPR images reviewed. Delayed images for evaluation of the urinary system also acquired. All images stored on PACS. All CT scanners at this facility use dose modulation, iterative reconstruction, and/or weight based d osing when appropriate to reduce radiation dose to as low as reasonably achievable (ALARA). [facility]: Dose Right [facility]: CareDose [facility]: Dose Right [facility]: Teradose 4D [facility]: [email or web address] CONTRAST TYPE AND DOSE: contrast/concentration: Isovue 350.00 mg/ml; Total Contrast Delivered: 72.0 ml; Total Saline Delivered: 66.0 ml RENAL FUNCTION: None required. The patient is less than 50 years old. RADIATION DOSE: CT Rad equipment meets quality standard of care and radiation dose reduction techniq ues were employed. CTDIvol: 5.6 - 7.7 mGy. DLP: 650 mGy-cm.. LIMITATIONS: None. FINDINGS: LOWER CHEST: No significant findings. No nodules or infiltrates. LIVER: Normal size. No masses. No dilated ducts. SPLEEN: Normal size. No focal lesions. PANCREAS: No masses. No significant calcifications. No adjacent inflammation or peripancreatic fluid collections. Pancreatic duct not dilated. GALLBLADDER: No identified stones by CT criteria. No inflammatory changes to suggest cholecystitis. ADRENAL GLANDS: No significant masses or asymmetry. RIGHT KIDNEY AND URETER: 2 cm cyst. 7 mm renal calculus. No hydronephrosis or hydroureter. LEFT KIDNEY AND URETER: No solid masses. No significant calcifications. No hydronephrosis or hydr oureter. AORTA AND VESSELS: No aneurysm. No dissection. Renal arteries, SMA, celiac without stenosis. RETROPERITONEUM: No retroperitoneal adenopathy, hemorrhage or masses. BOWEL AND PERITONEAL CAVITY: No masses or inflammatory changes. No free fluid or peritoneal masses. APPENDIX: Normal. PELVIS: No mass. No free fluid. Normal bladder. ABDOMINAL WALL: No masses. No hernias. BONES: No significant or acute findings. OTHER: No other significant finding. IMPRESSION: Nonobstructing stone right kidney. No acute findings. TECHNICAL DOCUMENTATION: JOB ID: [id number] Quality ID # [id number]: Final reports with documentation of one or more dose reduction techniques (e.g., Au tomated exposure control, adjustment of the mA and/or kV according to patient size, use of iterative reconstruction technique) 2010 [employer]- All Rights Reserved Reading location - IP/workstation name: [email or web address]
[2018-07-14 17:35] LABS: CHLAM PCR NOT DETECTED (NOT DETECT); GON PCR NOT DETECTED (NOT DETECT)
[2018-07-14 19:38] VITALS: BP 117/78
--- NOTE | 2018-07-14 19:47 | RADIOLOGY REPORT (SQ) ---
EXAM DESCRIPTION: U/S NON OB PEL TV W/DOPPLER COMPLETED DATE/TIME: 07/14/2018 7:28 pmc REASON FOR STUDY: pelvic pain LMP 06/27/2018 COMPARISON: 05/16/2014 TECHNIQUE: Dynamic and static grayscale images acquired of the pelvis via transvaginal approach and recorded on PACS. Additional selected color Doppler and spectral images recorded. LIMITATIONS: None. FINDINGS: UTERUS: Contour normal. No mass. ENDOMETRIAL STRIPE: No focal or generalized thickening. No masses. CERVIX: 2.8 cm. RIGHT OVARY AND DOPPLER: Normal size. No worrisome masses. Normal arterial vascular flow without evid ence for torsion. LEFT OVARY AND DOPPLER: Normal size. No worrisome masses. Normal arterial vascular flow without evide nce for torsion. FREE FLUID: None noted. OTHER: No other significant finding. MEASUREMENTS: UTERUS: 8.4 x 5.7 x 3.3 cm. ENDOMETRIAL STRIPE: 11 mm. RIGHT OVARY: 3.7 x 1.9 x 1.7 cm. LEFT OVARY: 3.7 x 1.7 cm. IMPRESSION: NORMAL TRANSVAGINAL PELVIC ULTRASOUND. TECHNICAL DOCUMENTATION: JOB ID: [id number]- All Rights Reserved Rev-06/25 Reading location - IP/workstation name: [email or web address]
== END 2018-07-14 20:20 | disposition home or self-care (01) ==
LOC: ER 12:44
DX: N20.0 Calculus of kidney (principal); R10.2 Pelvic and perineal pain; R10.84 Generalized abdominal pain
CPT/HCPCS: 99283; 96361; 96374; 96375; 36415; 87210; 83690; 85025; 81025; 80053; 81001; 87491; 87591; 76830; 93976; 74177; J2270; J2405; J7030